=== PATIENT | male | born 1990 | race Caucasian/White ===

== ENCOUNTER 2018-03-13 01:21 | Emergency (ER) | payer OTHER ==
[~2018-03-13] VITALS: Ht 182.9 cm; Wt 92.6 kg
[2018-03-13 01:30] VITALS: Ht 182.9 cm; Wt 92.6 kg
[2018-03-13 03:27] VITALS: BP 125/79
== END 2018-03-13 03:27 | disposition home or self-care (01) ==
LOC: ED 01:21
DX: L50.9 Urticaria, unspecified (principal); G43.909 Migraine, unspecified, not intractable, without status migrainosus
CPT/HCPCS: J0171; J7512